=== PATIENT | female | born 1995 | race Caucasian/White ===

== ENCOUNTER 2022-06-24 10:15 | Emergency (ER) | payer BC ==
[~2022-06-24] VITALS: Ht 157.5 cm; Wt 95.5 kg
[~2022-06-24 10:15] MED LIST: BCP PO; DOXYCYCLINE 10100 MG PO; MOTRIN 800800 MG/TAB PO; NORCO 325 MG-51 TAB PO; PERCOCET 325 MG1 TA2 PO; PRENATAL
[2022-06-24 10:35] VITALS: TEMP 97.4
[2022-06-24 11:23] LABS: COLLECTION METHOD CLEAN CATCH
[2022-06-24 11:27] LABS: BASO # 0.1 K/mm3 (0.0-0.2); BASO % 0.4 % (0.0-2.0); EOS % 0.1 % (0.0-4.0); GRAN # 11.6 K/mm3 (1.4-6.5); GRAN % 87.8 % (42.2-75.2); HEMATOCRIT 42.3 % (37.0-47.0); HEMOGLOBIN 15.3 g/dl (12.5-16.0); LYMPH # 1.1 K/mm3 (1.2-3.4); LYMPH % 8.2 % (20.0-51.0); MEAN CELL VOLUME 88 fl (80.0-100.0); MEAN CORPUSCULAR HEMOGLOBIN 32 pg (27-31); MEAN CORPUSCULAR HGB CONC 36 g/dl (33.0-37.0); MEAN PLATELET VOLUME 9.5 fl (7.4-10.4); MONO # 0.4 K/mm3 (0.1-0.6); PLATELET COUNT 256 K/mm3 (130-400); RED BLOOD COUNT 4.82 M/mm3 (4.10-5.30); REDCELL DISTRIBUTION WIDTH-CV 11.9 % (11.5-14.5)
[2022-06-24 11:40] LABS: PH 5.5 (5.0-8.5); URINE APPEARANCE Clear (CLEAR/HAZY); URINE BLOOD 3+ (NEGATIVE); URINE COLOR Amber (YELLOW); URINE GLUCOSE Negative (NEGATIVE); URINE KETONE 1+ (NEGATIVE); URINE NITRATE Negative (NEGATIVE); URINE PROTEIN(semi-quant) 2+ (NEGATIVE); URINE UROBILINOGEN 0.2 E.U/dL (0.2-1.0)
[2022-06-24 11:46] LABS: ALBUMIN 4.5 gm/dL (3.5-5.0); BILIRUBIN,TOTAL 0.5 mg/dL (0.2-1.2); CALCIUM 9.3 mg/dL (8.4-10.2); CREATININE, serum 0.88 mg/dL (0.57-1.11); POTASSIUM 3.5 mmol/L (3.5-4.5)
[2022-06-24 11:57] LABS: BUDDING YEAST Present (NOT PRESENT); MUCOUS Present (NOT PRESENT); SQUAMOUS EPITHELIAL 0-2 /hpf (0-10); URINE BACTERIA Rare /hpf (NONE SEEN); URINE RBC >50 /hpf (0-2)
[2022-06-24] MEDS ORDERED: CEFTIN500 MG PO (12:27)
[2022-06-24] MEDS ORDERED: NORCO 325 MG-51 TAB PO (12:43)
[2022-06-24 12:55] VITALS: BP 112/83; PULSE 73
== END 2022-06-24 12:58 | disposition home or self-care (01) ==
LOC: COL.ER 10:15
PROVIDERS: Physician Assistant
DX: N12 Tubulo-interstitial nephritis, not specified as acute or chronic (principal)
CPT/HCPCS: J0696; J1885; J2270; J7030; Q9967

== ENCOUNTER 2022-06-26 09:26 | Observation (INO) | payer BC ==
[~2022-06-26] VITALS: Ht 157.5 cm; Wt 95.5 kg
[~2022-06-26 09:26] MED LIST changes: +CEFTIN500 MG PO
[2022-06-26 10:15] LABS: COLLECTION METHOD CLEAN CATCH
[2022-06-26 10:27] LABS: BASO % 0.4 % (0.0-2.0); EOS # 0.1 K/mm3 (0.0-0.7); EOS % 1.1 % (0.0-4.0); GRAN # 6.7 K/mm3 (1.4-6.5); HEMOGLOBIN 14.1 g/dl (12.5-16.0); LYMPH # 1.8 K/mm3 (1.2-3.4); LYMPH % 19.3 % (20.0-51.0); MEAN CELL VOLUME 87 fl (80.0-100.0); MEAN CORPUSCULAR HEMOGLOBIN 32 pg (27-31); MEAN CORPUSCULAR HGB CONC 36 g/dl (33.0-37.0); MEAN PLATELET VOLUME 9.2 fl (7.4-10.4); MONO # 0.7 K/mm3 (0.1-0.6); MONO % 7.8 % (1.7-9.3); PLATELET COUNT 233 K/mm3 (130-400); RED BLOOD COUNT 4.48 M/mm3 (4.10-5.30); REDCELL DISTRIBUTION WIDTH-CV 11.8 % (11.5-14.5)
[2022-06-26 10:33] LABS: MUCOUS Present (NOT PRESENT); SQUAMOUS EPITHELIAL 20-50 /hpf (0-10); URINE BACTERIA None Seen /hpf (NONE SEEN); URINE CALCIUM OXALATE CRYSTAL Present (NOT PRESENT)
[2022-06-26 10:35] LABS: PH 5.5 (5.0-8.5); URINE APPEARANCE Cloudy (CLEAR/HAZY); URINE BLOOD TRACE-INTACT (NEGATIVE); URINE COLOR Yellow (YELLOW); URINE GLUCOSE Negative (NEGATIVE); URINE KETONE Negative (NEGATIVE); URINE NITRATE Negative (NEGATIVE); URINE PROTEIN(semi-quant) 1+ (NEGATIVE); URINE UROBILINOGEN 0.2 E.U/dL (0.2-1.0)
[2022-06-26 10:46] LABS: ALBUMIN 3.8 gm/dL (3.5-5.0); BILIRUBIN,TOTAL 0.5 mg/dL (0.2-1.2); CREATININE, serum 1.06 mg/dL (0.57-1.11); POTASSIUM 3.7 mmol/L (3.5-4.5); TOTAL PROTEIN 6.9 gm/dL (6.2-8.1)
[2022-06-26] MEDS ORDERED: CYMBALTA 60MG60 MG PO (12:33)
[2022-06-26 13:09] VITALS: BP 115/81; PULSE 70; TEMP 98
[2022-06-26 15:34] VITALS: BP 126/70; PULSE 77; TEMP 98.1
[2022-06-26 21:47] VITALS: BP 115/68; PULSE 77; TEMP 97.8
--- NOTE | 2022-06-26 22:13 | NUR ---
Patient A/O, VSS, head to toe assessment done, has been straining her urine, reports pain to left upper quadrant pain radiates to pelvis, PS of 6/10, toradol given at 2022. At 2210, patient still complaining of pain PS of 5/10, morphine IV given as well, denies further needs, call light and personal items within reach, will continue to monitor.
[2022-06-27 00:03] VITALS: BP 104/63; PULSE 82; TEMP 98
[2022-06-27 04:27] VITALS: BP 102/45; PULSE 80; TEMP 98.8
--- NOTE | 2022-06-27 07:00 | NUR ---
PT RESTING IN BED. IVF RUNNING. PT HAS CALL LIGHT WITHIN REACH AND INSTRUCTED TO CALL WITH ALL NEEDS. PT NPO FOR POSSIBLE OR TODAY.
[2022-06-27 07:32] VITALS: BP 118/74; PULSE 75; TEMP 98.1
[2022-06-27] MEDS ORDERED: FLOMAX 0.40.4 MG/CAP PO (10:28)
[2022-06-27] MEDS ORDERED: NORCO 325 MG-51 TAB PO (10:28)
--- NOTE | 2022-06-27 10:32 | NUR ---
SW met with mother of pt, pt was in surgery. Mother reports pt lives at home with her and she has a 4 year child. Renetta, mother, @ [phone] reports the pt is independent on all ADLS and does not use any DME. Her PCP is Reese Franz and gets medications from [facility]. Renetta reports pt has no DPOA-HC. No other needs at this time. SW await for further recommendations and follow up as needed. DC: Home with mother.
[2022-06-27 12:00] VITALS: BP 121/68; PULSE 87; TEMP 98
[2022-06-27 12:16] VITALS: BP 119/78; PULSE 76; TEMP 97.7
--- NOTE | 2022-06-27 13:04 | NUR ---
PT COMPLAINING OF LOWER ABD PRESSURE. PT PREVIOUSLY RECEIVED TORADOL, AZO, AND PERCOCET. NOTIFIED AND INSTRUCTED TO GIVE FLOMAX. MEDS GIVEN AND PT UPDATED.
--- NOTE | 2022-06-27 13:05 | NUR ---
Equipment Mechanic rounds: Patient was in surgery. Equipment Mechanic visited with Patient's Mother and Sister. Mother is a FOREIGN CAR MECHANIC. Sister is an RN. Both work at [employer]. Prayed for recovery and the Patient possibly going home this afternoon after the surgery (kidney stone).
--- NOTE | 2022-06-27 13:46 | NUR ---
DISCHARGE INSTUCTIONS DISCUSSED WITH PT. DISCUSSED NEW MEDICATIONS NEEDED FOR POTATO CHIP FRYER. DISCUSSED DIET TO REDUCE KIDNEY STONES. CONSULT ALSO PLACED FOR DIETARY TO CALL TOMORROW 06/28/22. PT ALSO INSTRUCTED TO CALL 'S OFFICE IN AM TO MAKE FOLLOW UP APPOINTMENT. ALL QUESTIONS ANSWERED. PT WHEELED OUT FOR DISCHARGE BY [employer].
== END 2022-06-27 13:48 | disposition home or self-care (01) ==
LOC: COL.ER 09:26 → SURG 12:10
PROVIDERS: Emergency Medicine; ADMIT Urology
DX: N20.1 Calculus of ureter (principal)
CPT/HCPCS: C1769; C2617; G0378; J0690; J1100; J1170; J1885; J2270; J2405; J2704; J3010; J7030

== ENCOUNTER 2022-07-31 09:08 | Emergency (ER) | payer BC ==
[~2022-07-31] VITALS: Ht 157.5 cm; Wt 90.9 kg
[~2022-07-31 09:08] MED LIST changes: +CYMBALTA 60MG60 MG PO; +FLOMAX 0.40.4 MG/CAP PO
[2022-07-31 09:46] LABS: COLLECTION METHOD CLEAN CATCH
[2022-07-31 10:04] LABS: PH 5.5 (5.0-8.5); URINE APPEARANCE Hazy (CLEAR/HAZY); URINE COLOR Yellow (YELLOW); URINE GLUCOSE Negative (NEGATIVE); URINE KETONE TRACE (NEGATIVE); URINE PROTEIN(semi-quant) 2+ (NEGATIVE)
[2022-07-31 10:05] LABS: URINE BLOOD 3+ (NEGATIVE); URINE NITRATE Negative (NEGATIVE); URINE UROBILINOGEN 0.2 E.U/dL (0.2-1.0)
[2022-07-31 10:10] LABS: BASO # 0.1 K/mm3 (0.0-0.2); BASO % 0.5 % (0.0-2.0); EOS # 0.1 K/mm3 (0.0-0.7); EOS % 0.5 % (0.0-4.0); GRAN % 76.5 % (42.2-75.2); HEMATOCRIT 41.5 % (37.0-47.0); HEMOGLOBIN 14.4 g/dl (12.5-16.0); LYMPH # 1.5 K/mm3 (1.2-3.4); LYMPH % 16.2 % (20.0-51.0); MEAN CELL VOLUME 90 fl (80.0-100.0); MEAN CORPUSCULAR HEMOGLOBIN 31 pg (27-31); MEAN CORPUSCULAR HGB CONC 35 g/dl (33.0-37.0); MEAN PLATELET VOLUME 9.9 fl (7.4-10.4); MONO # 0.5 K/mm3 (0.1-0.6); MONO % 5.6 % (1.7-9.3); PLATELET COUNT 229 K/mm3 (130-400); RED BLOOD COUNT 4.62 M/mm3 (4.10-5.30); REDCELL DISTRIBUTION WIDTH-CV 11.7 % (11.5-14.5)
[2022-07-31 10:16] LABS: MUCOUS Present (NOT PRESENT); URINE BACTERIA None Seen /hpf (NONE SEEN); URINE RBC >50 /hpf (0-2); URINE WBC 20-50 /hpf (0-2)
[2022-07-31 10:18] LABS: ALBUMIN 4.1 gm/dL (3.5-5.0); BILIRUBIN,TOTAL 0.6 mg/dL (0.2-1.2); CALCIUM 9.4 mg/dL (8.4-10.2); CREATININE, serum 0.81 mg/dL (0.57-1.11); POTASSIUM 4.1 mmol/L (3.5-4.5); TOTAL PROTEIN 7.3 gm/dL (6.2-8.1)
[2022-07-31] MEDS ORDERED: ZOFRAN 4MG T4 MG/TAB PO (10:57)
[2022-07-31] MEDS ORDERED: CEPHALEXIN500 M1 PO (10:57)
[2022-07-31] MEDS ORDERED: ROXICODONE 55 MG/TAB PO (10:57)
[2022-07-31 11:37] VITALS: BP 119/86; PULSE 87; TEMP 97.1
== END 2022-07-31 11:28 | disposition home or self-care (01) ==
LOC: COL.ER 09:08
PROVIDERS: Emergency Medicine
DX: N20.2 Calculus of kidney with calculus of ureter (principal)
CPT/HCPCS: J1885; J2270; J2405